=== PATIENT | male | born 1995 | race Caucasian/White ===

== ENCOUNTER 2020-06-20 20:47 | Emergency (ER) | payer BC, MEDICAID, OTHER ==
[2020-06-20] MEDS ORDERED: Ketorolac 60 MG/2 ML SDV IM ONE (21:47)
--- NOTE | 2020-06-20 21:49 | EDM.PDOC ---
ED HPI GENERAL MEDICAL PROBLEM - General Chief Complaint: ENT Problem Stated Complaint: BAD TOOTH/ANXIETY Time Seen by Provider: 06/20/20 21:47 Source of Information: Reports: Patient History Limitations: Reports: No Limitations - History of Present Illness INITIAL COMMENTS - FREE TEXT/NARRATIVE: pt arrived with pain in his left lower molar area. He is tender in front of his left ear. Onset: Gradual Duration: Hour(s): Location: Reports: Face Associated Symptoms: Reports: Other ( dental pain. ) - Related Data Allergies Allergy/AdvReac Type Severity Reaction Status Date / Time No Known Allergies Allergy Verified 06/20/20 21:20 Home Meds: Home Meds NK [No Known Home Meds] 06/20/20 [History] Past Medical History - Past Health History Medical/Surgical History: Denies Medical/Surgical History Social & Family History - Tobacco Use Tobacco Use Status *Q: Current Every Day Tobacco User Years of Tobacco use: 7 Packs/Tins Daily: 0.5 ED ROS ENT - Review of Systems Review Of Systems: See Below Constitutional: Reports: No Symptoms HEENT: Reports: Dental Pain, Ear Pain Respiratory: Reports: No Symptoms Cardiovascular: Reports: No Symptoms Endocrine: Reports: No Symptoms GI/Abdominal: Reports: No Symptoms : Reports: No Symptoms Musculoskeletal: Reports: No Symptoms Skin: Reports: No Symptoms ED EXAM, ENT - Physical Exam Exam: See Below Text/Narrative:: pt arrived with pain in his left lower molar. He also has left ear pain. Exam Limited By: No Limitations General Appearance: Alert, Anxious, Mild Distress Ears: Other (left drum is red and looks infected. He has a very carrious left lower molar. He is tender when this is pushed on. ) Nose: Normal Inspection Mouth/Throat: Dental Pain, Dental Tenderness Head: Atraumatic Neck: Lymphadenopathy (L) Respiratory/Chest: No Respiratory Distress Cardiovascular: Regular Rate, Rhythm Course - Vital Signs Last Recorded V/S: Last Vital Signs Temp 35.4 C L 06/20/20 21:24 Pulse 63 06/20/20 21:24 Resp 16 06/20/20 21:24 BP 165/92 H 06/20/20 21:24 Pulse Ox 99 06/20/20 21:24 - Orders/Labs/Meds Meds: Medications Discontinued Medications Generic Name Dose Route Start Last Admin Trade Name Freq PRN Reason Stop Dose Admin Ketorolac Tromethamine 60 mg 06/20/20 21:47 06/20/20 21:54 Toradol IM 06/20/20 21:48 60 mg ONETIME ONE Administration - Re-Assessments/Exams Free Text/Narrative Re-Assessment/Exam: 06/20/20 21:59 pt was given torodol 50 mg im. Departure - Departure Time of Disposition: 21:47 Disposition: Home, Self-Care 01 Condition: Fair Clinical Impression: Dental infection, Left otitis media - Discharge Information Instructions: Dental Abscess, [id number], Otitis Media, Adult, [id number] Referrals: PCP,None [Primary Care Provider] - Forms: ED Department Discharge Care Plan Goals: amoxicillin 500mg qid for 10 days, push fluids, torodol 10 mg q6h prn for pain, dental referal Sepsis Event Note (ED) - Evaluation Sepsis Screening Result: No Definite Risk - Focused Exam Vital Signs: Vital Signs Temp Pulse Resp BP Pulse Ox 06/20/20 21:24 35.4 C L 63 16 165/92 H 99 06/20/20 21:12 35.4 C L 63 16 165/92 H 99
== END 2020-06-20 22:23 | disposition home or self-care (01) ==
LOC: JP.ED 20:47
DX: K04.7 Periapical abscess without sinus (principal); H66.92 Otitis media, unspecified, left ear; Z72.0 Tobacco use
CPT/HCPCS: 96372; 99282; 99283; J1885

== ENCOUNTER 2021-03-07 03:29 | Emergency (ER) | payer OTHER ==
[2021-03-07] MEDS ORDERED: Diphtheria,Pertussis(Acell),Tetanus Vaccine 0.5 ML Syringe ONE (03:52)
[2021-03-07] MEDS ORDERED: Bacitracin Oint 1 GM U/D Packet TOP ONE (04:03)
--- NOTE | 2021-03-07 04:08 | EDM.PDOC ---
ED HPI GENERAL MEDICAL PROBLEM - General Chief Complaint: Laceration Stated Complaint: CUT TO RT LEG Time Seen by Provider: 03/07/21 03:48 Source of Information: Reports: Patient History Limitations: Reports: No Limitations - History of Present Illness INITIAL COMMENTS - FREE TEXT/NARRATIVE: Ric is a 25-year-old male presenting to the ED with 2 deep lacerations to his right inner leg above the ankle. Patient states that he made some poor decisions tonight and impulsively cut himself with a pocket knife. The wounds were deep into the subcutaneous tissue but did not come in contact with muscle or tendon. Patient denies any suicide ideation but simply states he made some bad choices tonight. Patient's last tetanus was in 2006. Right Lower Leg Pain Score (Numeric/FACES): 2 - Related Data Allergies Allergy/AdvReac Type Severity Reaction Status Date / Time No Known Allergies Allergy Verified 03/07/21 03:44 Home Meds: Home Meds NK [No Known Home Meds] 06/20/20 [History] Past Medical History - Past Health History Medical/Surgical History: Denies Medical/Surgical History Musculoskeletal History: Reports: Fracture Other Musculoskeletal History: left femur 8th grade - nona and screws - Infectious Disease History Infectious Disease History: Reports: Chicken Pox - Past Surgical History Musculoskeletal Surgical History: Reports: ORIF Social & Family History - Tobacco Use Tobacco Use Status *Q: Current Every Day Tobacco User Years of Tobacco use: 12 Packs/Tins Daily: 0.5 - Caffeine Use Caffeine Use: Reports: Coffee, Energy Drinks, Soda - Recreational Drug Use Recreational Drug Use: Yes Recreational Drug Type: Reports: Marijuana/Hashish ED ROS GENERAL - Review of Systems Review Of Systems: See Below Constitutional: Reports: No Symptoms Musculoskeletal: Reports: Leg Pain (To deep lacerations to the inner lower right leg above the ankle. First 1 measures approximately 3.6 cm and the second measures approximately 4.8 cm. Both wounds are widely gapping.) Skin: Reports: Wound (2 lacerations on the inside of the lower right leg.) Neurological: Reports: No Symptoms Psychiatric: Denies: Suicidal Ideation Hematologic/Lymphatic: Reports: No Symptoms ED EXAM, SKIN/RASH Exam: See Below Exam Limited By: No Limitations General Appearance: Alert, Mild Distress Eye Exam: Bilateral Eye: EOMI, PERRL Peripheral Pulses: 2+: Posterior Tibial (R), Dorsalis Pedis (R) Extremities: Normal Range of Motion, Normal Capillary Refill Skin: Warm, Dry, Wound/Incision (2 self-inflicted lacerations on the inside of the lower right leg with the first measuring 3.6 cm and the second measuring 4.8 cm. The wounds go into through the subcutaneous tissue down to the muscle but not into the muscle. Bleeding is currently controlled.) Location, Skin: Lower Extremity, Right Characteristics: Linear ED SKIN PROCEDURES - Laceration/Wound Repair Right Lower Medial Leg Appearance: Subcutaneous Distal NVT: Neuro & Vascular Intact Anesthetic Type: Local Local Anesthesia - Lidocaine (Xylocaine): 1% with EPI Local Anesthetic Volume: 3cc Skin Prep: Other (Soap and water) Exploration/Debridement/Repair: Wound Explored, In a Bloodless Field, Explored to Base Lac/Wound length In cm: 3.6 Suture Size: 3-0 # of Sutures: 4 Suture Type: Nylon, Interrupted Sterile Dressing Applied: Nurse Tetanus Status Addressed: Yes Complications: No Right Lower Leg Appearance: Subcutaneous Distal NVT: Neuro & Vascular Intact Anesthetic Type: Local Local Anesthesia - Lidocaine (Xylocaine): 1% with EPI Local Anesthetic Volume: 3cc Skin Prep: Other (Soap and water) Exploration/Debridement/Repair: Wound Explored, In a Bloodless Field, Explored to Base Closed with: Sutures Lac/Wound length In cm: 4.8 Suture Size: 3-0 # of Sutures: 13 (12 simple interrupted sutures and 1 horizontal mattress suture to bring the wound together.) Suture Type: Nylon, Interrupted, Mattress Drain Placement: No Sterile Dressing Applied: Nurse Tetanus Status Addressed: Yes Complications: No Course - Vital Signs Last Recorded V/S: Last Vital Signs Temp 35.6 C L 03/07/21 03:41 Pulse 97 03/07/21 03:41 Resp 16 03/07/21 03:41 BP 153/79 H 03/07/21 03:41 Pulse Ox 96 03/07/21 03:41 - Orders/Labs/Meds Orders: Active Orders 24 hr Category Date Time Status Bacitracin [Bacitracin Oint 1 GM] Med 03/07/21 04:03 Once 1 dose TOP ONETIME ONE Meds: Medications Discontinued Medications Generic Name Dose Route Start Last Admin Trade Name Freq PRN Reason Stop Dose Admin Diphtheria/Tetanus/Acell Pertussis Confirm 03/07/21 03:52 Diphtheria,Pertussis(Acell),Tetanus Vaccine 0.5 Ml Syringe Administered 03/07/21 03:53 Dose 0.5 ml .ROUTE .[facility] ONE - Re-Assessments/Exams Free Text/Narrative Re-Assessment/Exam: 03/07/21 04:10 the wound was anesthetized using 1% lidocaine with epinephrine. It was then scrubbed out using soap and water and surgical sponges. There was no active bleeding at the time. Wound was closed using 3-0 Ethilon requiring a total of 17 sutures (16 simple interrupted sutures and 1 horizontal mattress suture) with good coaptation of the wound edges. A light coating bacitracin was applied over the wound and a dressing was applied over that. The patient will need to keep the wound clean and dry for the next 24 hours. He may return to work this morning. You may take Tylenol or ibuprofen for pain control. He should watch for any signs of infection. Indications return to the ED were discussed and was discharged in satisfactory condition. Tdap was boosted today. Departure - Departure Time of Disposition: 04:11 Disposition: Home, Self-Care 01 Clinical Impression: Lacerations of multiple sites of right leg Qualifiers: Encounter type: initial encounter Qualified Code(s): S81.811A - Laceration without foreign body, right lower leg, initial encounter - Discharge Information Instructions: Laceration Care, Adult, Sutures, Celia, or Adhesive Wound C losure, [id number] Referrals: PCP,None [Primary Care Provider] - Care Plan Goals: There are total of 17 sutures that of been placed in your leg. Please watch for any sign of infection. The wound looks fairly clean. Please keep the wound dry for the next 24 hours after which time you can bathe. The sutures will need to be removed in 10 days which can be done either coming back to the ER or going to the clinic. Please apply a light coating of bacitracin and a dressing over the wound at least daily. Your tetanus has been booster so you should be good for the next 10 years. Sepsis Event Note (ED) - Evaluation Sepsis Screening Result: No Definite Risk - Focused Exam Vital Signs: Vital Signs Temp Pulse Resp BP Pulse Ox 03/07/21 03:41 35.6 C L 97 16 153/79 H 96 - Problem List & Annotations (1) Lacerations of multiple sites of right leg SNOMED Code(s): 39932277469473447, [id number] Code(s): S81.811A - LACERATION W/O FOREIGN BODY, RIGHT LOWER LEG, INIT ENCNTR Status: Acute Priority: Medium Current Visit: Yes Qualifiers: Encounter type: initial encounter Qualified Code(s): S81.811A - Laceration without foreign body, right lower leg, initial encounter - Problem List Review Problem List Initiated/Reviewed/Updated: Yes - My Orders Last 24 Hours: My Active Orders 03/07/21 04:03 Bacitracin [Bacitracin Oint 1 GM] 1 dose TOP ONETIME ONE - Assessment/Plan Last 24 Hours: My Active Orders 03/07/21 04:03 Bacitracin [Bacitracin Oint 1 GM] 1 dose TOP ONETIME ONE
== END 2021-03-07 04:21 | disposition home or self-care (01) ==
LOC: JP.ED 03:29
DX: S81.811A Laceration without foreign body, right lower leg, initial encounter (principal); Z23 Encounter for immunization; Z72.0 Tobacco use; W26.0XXA Contact with knife, initial encounter
CPT/HCPCS: 12004; 90471; 90715; 99282-25